=== PATIENT | male | born 1970 | race African-American/Black ===

== ENCOUNTER 2023-07-31 13:03 | Day surgery (SDC) | payer BC ==
[~2023-07-31 13:03] MED LIST: Lactated Ringers 1,000 ML IV SCH; Midazolam 1 MG/ML 2 ML SDV ONE; Propofol 200 MG/20 ML SDV ONE; Sodium Chloride 0.9% 10 ML Syringe FLUSH PRN
[2023-07-31 13:27] LABS: GLUCOSE,POC 113 mg/dL (70-99)
[2023-07-31] MEDS: Lactated Ringers 1,000 ML IV SCH (13:34)
== END 2023-07-31 16:50 ==
LOC: LL.SDS 13:03
PROVIDERS: ATTEND Surgery
DX: Z12.11 Encounter for screening for malignant neoplasm of colon (principal); D12.3 Benign neoplasm of transverse colon; I10 Essential (primary) hypertension; E11.9 Type 2 diabetes mellitus without complications; E78.5 Hyperlipidemia, unspecified; Z86.010 Personal history of colon polyps; Z79.84 Long term (current) use of oral hypoglycemic drugs; Z79.82 Long term (current) use of aspirin; Z79.899 Other long term (current) drug therapy
CPT/HCPCS: 00811; 82947; J2250; J2704; J7120